=== PATIENT | female | born 1995 | race Hispanic/Latino ===

== ENCOUNTER 2020-10-05 05:36 | Emergency (ER) | payer BC ==
[2020-10-05 06:06] LABS: Urine Blood 2+ (Negative); Urine Glucose Negative (Negative); Urine Protein Negative (Negative); Urine Specific Gravity >=1.030 (1.005-1.030); Urine pH 5.5 (5.0-7.0)
[2020-10-05 06:12] LABS: Urine Specific Gravity/Preg >1.030 (1.005-1.030)
[2020-10-05] MEDS ORDERED: NA CHLORIDE 0.9% 1,000 ML ONE (06:15)
[2020-10-05] MEDS ORDERED: MORPHINE 4 MG/ML SYR ONE ×2 (06:15→10:19)
[2020-10-05] MEDS ORDERED: ONDANSETRON 4 MG/2 ML VIAL ONE ×2 (06:15→10:19)
[2020-10-05 06:19] LABS: Absolute Lymphocytes (CBC) 2.8 K/uL (0.7-4.9); Basophils % 0.6 % (0-1.3); Hematocrit 42.3 % (36.0-45.0); Lymphocytes % 41.4 % (15.3-44.8); MPV 7.9 fL (7.6-11.3); RBC Red Blood Cell Count 5.06 M/uL (3.86-4.86)
[2020-10-05 06:27] LABS: ALT/SGPT 27 U/L (12-78); AST/SGOT 20 U/L (15-37); Albumin 3.6 g/dL (3.4-5.0); Alkaline Phosphatase 154 U/L (45-117); BUN Blood Urea Nitrogen 17 mg/dL (7-18); Bicarbonate 29 mmol/L (21-32); Bilirubin Direct < 0.1 mg/dL (0-0.2); Bilirubin Total 0.2 mg/dL (0.2-1.0); Glucose Level 88 mg/dL (74-106); Lipase 219 U/L (73-393); Potassium 3.9 mmol/L (3.5-5.1); Protein, Total 7.9 g/dL (6.4-8.2); Sodium Level 141 mmol/L (136-145)
[2020-10-05] MEDS ORDERED: FAMOTIDINE 20 MG/2 ML VIAL IV ONE (06:37)
--- NOTE | 2020-10-05 07:28 | RAD REPORT ---
EXAM DESCRIPTION: CTAbdomen Pelvis W Contrast - 10/05/2020 7:10 am CLINICAL HISTORY: Abdominal pain. Abd pain;Nausea / vomiting COMPARISON: No comparisons TECHNIQUE: Biphasic CT imaging of the abdomen and pelvis was performed with 100 ml non-ionic IV cont rast. All CT scans are performed using dose optimization technique as appropriate and may include automated exposure control or mA/KV adjustment according to patient size. FINDINGS: The lung bases are clear. The liver, spleen, pancreas, adrenal glands and kidneys are within normal limits. No bowel obstruction, free air, free fluid or abscess. The appendix is normal. No evidence of signi ficant lymphadenopathy. No suspicious bony findings. Mildly enlarged uterus. IMPRESSION: No acute intra-abdominal or pelvic finding. uterus
--- NOTE | 2020-10-05 10:09 | RAD REPORT ---
EXAM DESCRIPTION: US - Abdomen Exam Limited - 10/05/2020 8:44 am CLINICAL HISTORY: ABD PAIN COMPARISON: No comparisons FINDINGS: The gallbladder demonstrates several small shadowing gallstones. No pericholecystic fluid or gallbladder wall thickening. The common bile duct is mildly enlarged measuring 7 mm. The liver demonstrates no findings of intrahepatic biliary dilatation. IMPRESSION: Cholelithiasis. No sonographic abnormality to indicate acute cholecystitis. Mildly prominent bile duct 6-7 mm. Follow-up MRCP may be of value.
--- NOTE | 2020-10-05 10:42 | ER ---
Nurse's Notes [facility] Name: Shahriar Sharif Age: 25 yrs Sex: Female : 1995 Arrival Date: 10/05/2020 Time: 05:38 Bed 13 Private MD: Diagnosis: Cholelithiasis;Choledocholithiasis Presentation: 10/05 05:46 Chief complaint: Patient states: Reports abdominal pain that started this AM pt reports ea it is epigastric pain and one episode of vomiting. Reports she ate pizza last night. Gave to a new born about two weeks ago. Coronavirus screen: At this time, the client does not indicate any symptoms associated with coronavirus-19. Ebola Screen: No symptoms or risks identified at this time. Initial Sepsis Screen: Does the patient meet any 2 criteria? No. Patient's initial sepsis screen is negative. Does the patient have a suspected source of infection? No. Patient's initial sepsis screen is negative. Risk Assessment: Do you want to hurt yourself or someone else? Patient reports no desire to harm self or others. Onset of symptoms was October 05, 2020. 05:46 Method Of Arrival: Ambulatory ea 05:46 Acuity: NIOCLE 3 ea Triage Assessment: 06:11 General: Appears uncomfortable, Behavior is appropriate for age. Pain: Complains of ea pain in epigastric area. Neuro: Level of Consciousness is awake, alert, obeys commands, Oriented to person, place, time. Respiratory: Airway is patent Respiratory effort is even, unlabored, Respiratory pattern is regular, symmetrical. GI: Abdomen is non-distended. Derm: Skin is pink, warm \T\ dry. Historical: - Allergies: 06:11 No Known Allergies; ea - Home Meds: 06:11 None [Active]; ea - PMHx: 06:11 None; ea - PSHx: 06:11 None; ea - Immunization history:: Adult Immunizations up to date. - Social history:: Smoking status: Patient denies any tobacco usage or history of. Screenin:10 Abuse screen: Denies threats or abuse. Nutritional screening: No deficits noted. ea Tuberculosis screening: No symptoms or risk factors identified. Fall Risk None identified. Assessment: 07:30 General: Appears in no apparent distress. comfortable, well groomed, Behavior is calm, ph cooperative, appropriate for age. Pain: Complains of pain in epigastric area and right upper quadrant Pain currently is 2 out of 10 on a pain scale. Neuro: Level of Consciousness is awake, alert, obeys commands, Oriented to person, place, time, situation. Respiratory: Airway is patent Respiratory effort is even, unlabored. GI: Reports nausea, vomiting, denies at this time. : No signs and/or symptoms were reported regarding the genitourinary system. Derm: Skin is intact, is healthy with good turgor, Skin is pink, warm \T\ dry. 08:59 Reassessment: Patient appears in no apparent distress at this time. Patient and/or ph family updated on plan of care and expected duration. Pain level reassessed. Patient is alert, oriented x 3, equal unlabored respirations, skin warm/dry/pink. 10:30 Reassessment: Patient appears in no apparent distress at this time. Patient and/or ph family updated on plan of care and expected duration. Pain level reassessed. Patient is alert, oriented x 3, equal unlabored respirations, skin warm/dry/pink. Awaiting US results. 12:15 Reassessment: Patient appears in no apparent distress at this time. Patient and/or ph family updated on plan of care and expected duration. Pain level reassessed. Patient is alert, oriented x 3, equal unlabored respirations, skin warm/dry/pink. Report called to Michael FRITZ at [facility] in [place], transfer form signed by pt. 12:57 Reassessment: Patient appears in no apparent distress at this time. Patient and/or ph family updated on plan of care and expected duration. Pain level reassessed. Patient is alert, oriented x 3, equal unlabored respirations, skin warm/dry/pink. Report given to [facility], pt transferred to [facility]. Vital Signs: 05:46 BP 111 / 52; Pulse 82; Resp 18; Temp 99; Pulse Ox 97% ; Weight 86.18 kg; Height 5 ft. 3 ea in. (160.02 cm); 07:30 BP 108 / 51; Pulse 78; Resp 16; Pulse Ox 100% on R/A; ph 08:57 BP 132 / 73; Pulse 72; Resp 18; Pulse Ox 98% on R/A; ph 10:30 BP 114 / 59; Pulse 73; Resp 16; Pulse Ox 98% on R/A; ph 11:30 BP 122 / 72; Pulse 73; Resp 18; Pulse Ox 99% on R/A; ph 12:30 BP 113 / 63; Pulse 72; Resp 18; Temp 98.7; Pulse Ox 99% on R/A; ph 05:46 Body Mass Index 33.66 (86.18 kg, 160.02 cm) ea ED Course: 05:38 Patient arrived in ED. bp1 05:46 Lexis Shaikh, CATRINA is Primary Nurse. ea 05:52 Diomedes Castellanos MD is Attending Physician. [facility] 06:10 Triage completed. ea 06:10 Patient has correct armband on for positive identification. Bed in low position. Call ea light in reach. Pulse ox on. NIBP on. 06:11 Arm band placed on right wrist. Patient placed in an exam room, on a stretcher, on ea pulse oximetry. 07:10 CT Abd/Pelvis - IV Contrast Only In Process Unspecified. EDMS 07:15 Attending Physician role handed off by Diomedes Castellanos MD rn 07:15 Joselito Solano MD is Attending Physician. rn 08:44 US Abdomen Limited In Process Unspecified. EDMS 10:43 initiated a transfer with Jorge Luis from the [facility] transfer center. eb 11:[address] Keys the GI customer retention specialist for [facility] with Dr. Solano for patient eb transfer consultation. 11:28 administrative approval given by Tania Murcia/ patient has been accepted to [facility] Rm 320/ Dr. Lesly Keys has accepted the patient in transfer/ report to be called to [phone]. 12:55 No provider procedures requiring assistance completed. Patient transferred, IV remains ph in place. Administered Medications: 06:06 Drug: NS 0.9% 1000 ml Route: IV; Rate: 1 bolus; Site: right antecubital; ea 07:30 Follow up: Response: No adverse reaction; IV Status: Completed infusion; IV Intake: ph 1000ml 06:06 Drug: morphine 4 mg Route: IVP; Site: right antecubital; ea 06:21 Follow up: Response: No adverse reaction ea 06:07 Drug: Zofran (Ondansetron) 4 mg Route: IVP; Site: right antecubital; ea 06:21 Follow up: Response: No adverse reaction ea 06:21 Not Given (Duplicate Order): NS 0.9% 1000 ml IV at 1000 ml once ea 06:21 Drug: Pepcid (famotidine) 20 mg Route: IVP; Site: right antecubital; ea 12:58 Follow up: Response: No adverse reaction ph 10:00 Drug: Zofran (Ondansetron) 4 mg Route: IVP; Site: right antecubital; ph 12:58 Follow up: Response: No adverse reaction; Nausea is decreased ph 10:02 Drug: morphine 4 mg Route: IVP; Site: right antecubital; ph 12:58 Follow up: Response: No adverse reaction; Pain is decreased; RASS: Alert and Calm (0) ph Intake: 07:30 IV: 1000ml; Total: 1000ml. ph Outcome: 10:42 ER care complete, transfer ordered by . rn 12:59 Patient left the ED. ph Signatures: Dispatcher [employer] EDMS Joselito Solano MD MD rn Hall, Patricia, RN RN ph Antunez, Elena, RN RN ea Botello, Elizabeth eb Paniauga, Brittany bp1 Holmes, Maurice, MD MD mh7
--- NOTE | 2020-10-05 10:42 | EDPHYS ---
Physician Documentation [facility] Name: Shahriar Sharif Age: 25 yrs Sex: Female : 1995 Arrival Date: 10/05/2020 Time: 05:38 Bed 13 Private MD: ED Physician Joselito Solano HPI: 10/05 06:09 This 25 yrs old Female presents to ER via Unassigned with complaints of mh7 Abdominal Pain, Vomiting. 06:09 The patient presents with abdominal pain in the upper abdomen. Onset: The mh7 symptoms/episode began/occurred today, at 04:00. The symptoms do not radiate. Associated signs and symptoms: Pertinent positives: nausea and vomiting, Pertinent negatives: anorexia, blood in stools, chest pain, constipation, diarrhea, dysuria, fever, headache, hematuria, palpitations, shortness of breath, vaginal discharge, vomiting blood. The symptoms are described as intermittent, vague, waxing/waning. Modifying factors: The symptoms are alleviated by nothing, the symptoms are aggravated by nothing. Severity of pain: At its worst the pain was moderate today, in the emergency department the pain is unchanged. Historical: - Allergies: 06:11 No Known Allergies; ea - Home Meds: 06:11 None [Active]; ea - PMHx: 06:11 None; ea - PSHx: 06:11 None; ea - Immunization history:: Adult Immunizations up to date. - Social history:: Smoking status: Patient denies any tobacco usage or history of. ROS: 06:09 Constitutional: Negative for fever, chills, and weight loss, Eyes: Negative for injury, mh7 pain, redness, and discharge, ENT: Negative for injury, pain, and discharge, Neck: Negative for injury, pain, and swelling, Cardiovascular: Negative for chest pain, palpitations, and edema, Respiratory: Negative for shortness of breath, cough, wheezing, and pleuritic chest pain, Back: Negative for injury and pain, : Negative for injury, bleeding, discharge, and swelling, MS/Extremity: Negative for injury and deformity, Skin: Negative for injury, rash, and discoloration, Neuro: Negative for headache, weakness, numbness, tingling, and seizure, Psych: Negative for depression, anxiety, suicide ideation, homicidal ideation, and hallucinations, Allergy/Immunology: Negative for hives, rash, and allergies, Endocrine: Negative for neck swelling, polydipsia, polyuria, polyphagia, and marked weight changes, Hematologic/Lymphatic: Negative for swollen nodes, abnormal bleeding, and unusual bruising. Exam: 06:09 Constitutional: This is a well developed, well nourished patient who is awake, alert, mh7 and in no acute distress. Head/Face: Normocephalic, atraumatic. Eyes: Pupils equal round and reactive to light, extra-ocular motions intact. Lids and lashes normal. Conjunctiva and sclera are non-icteric and not injected. Cornea within normal limits. Periorbital areas with no swelling, redness, or edema. Neck: Trachea midline, no thyromegaly or masses palpated, and no cervical lymphadenopathy. Supple, full range of motion without nuchal rigidity, or vertebral point tenderness. No Meningismus. Chest/axilla: Normal chest wall appearance and motion. Nontender with no deformity. No lesions are appreciated. Cardiovascular: Regular rate and rhythm with a normal S1 and S2. No gallops, murmurs, or rubs. Normal PMI, no JVD. No pulse deficits. Respiratory: Lungs have equal breath sounds bilaterally, clear to auscultation and percussion. No rales, rhonchi or wheezes noted. No increased work of breathing, no retractions or nasal flaring. 06:09 Back: No spinal tenderness. No costovertebral tenderness. Full range of motion. Skin: Warm, dry with normal turgor. Normal color with no rashes, no lesions, and no evidence of cellulitis. MS/ Extremity: Pulses equal, no cyanosis. Neurovascular intact. Full, normal range of motion. Neuro: Awake and alert, GCS 15, oriented to person, place, time, and situation. Cranial nerves II-XII grossly intact. Motor strength 5/5 in all extremities. Sensory grossly intact. Cerebellar exam normal. Normal gait. Psych: Awake, alert, with orientation to person, place and time. Behavior, mood, and affect are within normal limits. 06:09 Abdomen/GI: Inspection: obese Bowel sounds: normal, in all quadrants, Palpation: moderate abdominal tenderness, in the epigastric area and right upper quadrant, mass, is not appreciated, rebound tenderness, is not appreciated, voluntary guarding, is not appreciated, involuntary guarding, is not appreciated, no appreciated organomegaly, Rectal exam: the exam is deferred, because of patient request, Indicators: McBurney's point is not tender, Vidal's sign is negative, Rovsing's sign is negative, Obturator sign is negative, Psoas sign is negative, Liver: no appreciated palpable abnormalities, Hernia: not appreciated. Vital Signs: 05:46 BP 111 / 52; Pulse 82; Resp 18; Temp 99; Pulse Ox 97% ; Weight 86.18 kg; Height 5 ft. 3 ea in. (160.02 cm); 07:30 BP 108 / 51; Pulse 78; Resp 16; Pulse Ox 100% on R/A; ph 08:57 BP 132 / 73; Pulse 72; Resp 18; Pulse Ox 98% on R/A; ph 10:30 BP 114 / 59; Pulse 73; Resp 16; Pulse Ox 98% on R/A; ph 11:30 BP 122 / 72; Pulse 73; Resp 18; Pulse Ox 99% on R/A; ph 12:30 BP 113 / 63; Pulse 72; Resp 18; Temp 98.7; Pulse Ox 99% on R/A; ph 05:46 Body Mass Index 33.66 (86.18 kg, 160.02 cm) ea MDM: 06:57 Transition of care: After a detail discussion of the patient's case, care is mh7 transferred to Joselito Solano MD. 07:15 Patient medically screened. rn 10:40 Differential diagnosis: cholecystitis, Cholelithiasis, gastritis. Data reviewed: vital rn signs, nurses notes, lab test result(s), radiologic studies, CT scan, ultrasound, and as a result, I will admit patient. Counseling: I had a detailed discussion with the patient and/or guardian regarding: the historical points, exam findings, and any diagnostic results supporting the discharge/admit diagnosis, lab results, radiology results, the need to transfer to another facility, [facility] does not immediately have the required specialist. Response to treatment: the patient's symptoms have mildly improved after treatment, and as a result, I will admit patient. ED course: Pt still with pain requiring pain medication in IV, prominent CBD, elevated alk phos, 3 weeks , will transfer given no GI or MRCP available here.. 10/05 05:46 Order name: Basic Metabolic Panel; Complete Time: 06:29 ea 10/05 05:46 Order name: CBC with Diff; Complete Time: 06:25 ea 10/05 05:46 Order name: Hepatic Function; Complete Time: 06:29 ea 10/05 05:46 Order name: Lipase; Complete Time: 06:29 ea 10/05 06:06 Order name: Urine Dipstick-Ancillary; Complete Time: 06:07 EDMS 10/05 06:06 Order name: Urine --Ancillary (enter results); Complete Time: 06:25 mw2 10/05 06:36 Order name: CT Abd/Pelvis - IV Contrast Only; Complete Time: 07:34 mh7 10/05 06:57 Order name: Urine Culture [facility] 10/05 06:57 Order name: Urine Culture [facility] 10/05 07:35 Order name: US Abdomen Limited; Complete Time: 10:19 rn 10/05 11:58 Order name: SARS-COV-2 RT PCR [facility] 10/05 05:46 Order name: IV Saline Lock; Complete Time: 06:05 ea 10/05 05:46 Order name: Labs collected and sent; Complete Time: 06:05 ea 10/05 06:05 Order name: Urine Dipstick-Ancillary (obtain specimen); Complete Time: 06:22 7 Administered Medications: 06:06 Drug: NS 0.9% 1000 ml Route: IV; Rate: 1 bolus; Site: right antecubital; ea 07:30 Follow up: Response: No adverse reaction; IV Status: Completed infusion; IV Intake: ph 1000ml 06:06 Drug: morphine 4 mg Route: IVP; Site: right antecubital; ea 06:21 Follow up: Response: No adverse reaction ea 06:07 Drug: Zofran (Ondansetron) 4 mg Route: IVP; Site: right antecubital; ea 06:21 Follow up: Response: No adverse reaction ea 06:21 Not Given (Duplicate Order): NS 0.9% 1000 ml IV at 1000 ml once ea 06:21 Drug: Pepcid (famotidine) 20 mg Route: IVP; Site: right antecubital; ea 12:58 Follow up: Response: No adverse reaction ph 10:00 Drug: Zofran (Ondansetron) 4 mg Route: IVP; Site: right antecubital; ph 12:58 Follow up: Response: No adverse reaction; Nausea is decreased ph 10:02 Drug: morphine 4 mg Route: IVP; Site: right antecubital; ph 12:58 Follow up: Response: No adverse reaction; Pain is decreased; RASS: Alert and Calm (0) ph Disposition: 10/05/20 10:42 Transfer ordered to [facility]. Diagnosis are Cholelithiasis, Choledocholithiasis. - Reason for transfer: Higher level of care. - Accepting physician is . - Condition is Stable. - Problem is new. - Symptoms are unchanged. Signatures: Dispatcher [employer] EDMN Joselito Solano MD MD rn Hall, Patricia, RN RN ph Antunez, Elena, RN RN ea Holmes, Maurice, MD MD mh7 Corrections: (The following items were deleted from the chart) 11:06 10:43 CORONAVIRUS+MR.LAB.BRZ ordered. [facility] 12:59 10:42 10/05/2020 10:42 Transfer ordered to [facility]. Diagnosis is Cholelithiasis; ph Choledocholithiasis. Reason for transfer: Higher level of care. Accepting physician is . Condition is Stable. Problem is new. Symptoms are unchanged. rn
[2020-10-05 13:10] VITALS: O2SAT 99
[2020-10-05 13:11] VITALS: BP 113/63; TEMP 98.7
== END 2020-10-05 12:59 | disposition short-term general hospital (02) ==
LOC: ER 05:36
DX: K80.50 Calculus of bile duct without cholangitis or cholecystitis without obstruction (principal); K80.20 Calculus of gallbladder without cholecystitis without obstruction; Z20.822 Contact with and (suspected) exposure to COVID-19
CPT/HCPCS: 87088; 85025; 87086; 80048; 36415; 81025; 80076; 81003; 83690; 74177; 76705; U0003; Q9967; J7030; J2405 ×2; 96361; 96374; 96375; 99284

== ENCOUNTER 2020-10-14 16:36 | Emergency (ER) | payer BC ==
--- OUTSIDE RECORDS SUMMARY | 2020-10-14 16:39 | XMS REPORT | Continuity of Care Document ---
:1995 [address] [facility] t Address [address] [place] [address] Care Team Providers Name Role Phone Pcp, Does Not Have A Primary Care Physician Reyes MARINELLI Attending Clinician Art KYLE Attending Clinician Loida MARINELLI M Attending Clinician Reyes MARINELLI Admitting Clinician Payers Payer Name Policy Type Policy Effective Date Expiration Date Sour ce Number [facility] [id number] [facility] [place] [facility] [place] [id number] Branch 2020-[place] [id number], [place] [address]LYU/POS Problems Condition Condition Condition Status Onset Resolution Last Treating Co mments Source Name Details Category Date Date Treatment Clinician Date Encounter Encounter Disease Active Uni vers for for 3-16 [place] Medical normal normal Branch first first in third in third trimester trimester Class 1 Class 1 Disease Active 2019-04 Univers obesity obesity 2-02 ity of without without 00:00: [place] serious serious 00 Medical comorbidit comorbidit Br anch y with y with body mass body mass index index (BMI) of (BMI) of 34.0 to 34.0 to 34.9 in 34.9 in adult, adult, unspecifie unspecifie d obesity d obesity type type LGSIL on LGSIL on Disease Active 2019-04 Unive rs Pap smear Pap smear 2-02 [place] [facility] Unspecifie Unspecifie Disease Resolve 2019-042020-08-22 2020-08-22 Univers d d d 05-27 00:00:00 16:55:22 [place] high[place] [facility] Allergies, Adverse Reactions, Alerts This patient has no known allergies or adverse reactions. Social History Social Habit Start Date Stop Date Quantity Comments Source ASSERTION 2019-12-29 [facility] 00:00:00 [facility] Tobacco use and 2020-08-28 2020-08-28 Never used [facility] y of exposure 00:00:00 00:00:00 [facility] Alcohol intake 2020-08-28 2020-08-28 Ex-drinker [facility] 00:00:00 00:00:00 (finding) [facility] Sex Assigned At [birth year] [facility] y of 00:00:00 00:00:00 [facility] Smoking Status Start Date Stop Date Source Never smoker [facility] Medications Ordered Filled Start Stop Current Ordering Indication Dosage Frequency Signature Comments Components Source Medication Medication Date Date Medication? Clinician (SIG) Name Name PNV Yes Take by [facility] no.95/beryl 1-05 mouth. ity of [place] 19:39: [place] fum/folic 04 [facility] ( ORAL) Immunizations Ordered Filled Immunization Date Status Comments Sourc e Immunization Name Name TDAP 2020-07-08 Completed [facility] 00:00:00 [facility] Vital Signs Vital Name Observation Time Observation Value Comments Source Respiratory rate 2020-08-28 13:09:00 18 /min [facility] Body weight 2020-08-28 13:09:00 98.113 kg [facility] BMI 2020-08-28 13:09:00 37.13 kg/m2 [facility] Oxygen saturation in 2020-08-28 13:09:00 98 /min [facility] Arterial blood by [facility] Pulse oximetry Branch Systolic blood 2020-08-28 13:09:00 117 mm[Hg] Univer sity of pressure [facility] Diastolic blood 2020-08-28 13:09:00 73 mm[Hg] Unive [facility] Branch Heart rate 2020-08-28 13:09:00 83 /min Universi [facility] Body temperature 2020-08-28 13:09:00 36.72 [facility] Procedures This patient has no known procedures. Plan of Care Planned Activity Planned Date Details Comments Source Future Scheduled 2030-07-08 DTaP,Tdap,and Td Univers ity [facility] Test 00:00:00 Vaccines (2 - Td) Medical Br anch [code = DTaP,Tdap,and Td Vaccines (2 - Td)] Future Scheduled 2023-01-28 Screening for [facility] Test 00:00:00 malignant neoplasm of Medica l Branch cervix (procedure) [code = 741946537] Future Scheduled 2021-08-21 Screening for [facility] Test 00:00:00 Chlamydia trachomatis Medica l Branch (procedure) [code = 705601072] Future Scheduled 2021-03-26 [facility] (procedure) [code = Medical Branch [id number]] Future Scheduled 2020-12-24 [facility] (Season Ended) [code = Medic al Branch INFLUENZA VACCINE (Season Ended)] Future Scheduled 2015 [facility]00 (procedure) [code = Medical Branch [id number]] Future Scheduled 2013 SARS-CoV-2 (COVID-19) [facility]00 Vaccine (1) [code = Medical Branch SARS-CoV-2 (COVID-19) Vaccine (1)] Future Scheduled 2008 HPV VACCINES (1 - Univer sity [facility] Test 00:00:00 2-dose series) [code = Medic al Branch HPV VACCINES (1 - 2-dose series)] Future Scheduled 2007 MENINGOCOCCAL B Universi [facility] Test 00:00:00 VACCINES (1 of 2 - Medical B ranch Risk Bexsero 2-dose series) [code = MENINGOCOCCAL B VACCINES (1 of 2 - Risk Bexsero 2-dose series)] Future Scheduled 1998 VARICELLA VACCINES ([facility]:00 of 2 - 2-dose Medical Branch childhood series) [code = VARICELLA VACCINES (1 of 2 - 2-dose childhood series)] Encounters Start End Encounter Admission Attending Care Care Encounter Source Date/Time Date/Time Type Type Clinicians Facility Department ID 2020-09-15 2020-09-17 [facility] Susan Chambers [facility] [id number] 11:01:00 20:10:00 Encounter Rachel [id number] [place] [id number] [place] [id number] 2020-09-16 2020-09-[id number] 20:02:51 20:02:51 Event Aron Ramos [id number] [place] [id number] [place] [id number] 2020-09-16 2020-09-16 Anesthesia Loida [facility] [id number] 04:30:00 19:25:00 Event Andres Ramos [id number] [place] [id number] [place] [id number] Results This patient has no known results.
[2020-10-14 17:09] LABS: Absolute Lymphocytes (CBC) 2.3 K/uL (0.7-4.9); Basophils % 0.9 % (0-1.3); Hematocrit 38.4 % (36.0-45.0); Lymphocytes % 34.2 % (15.3-44.8); MPV 8.4 fL (7.6-11.3); RBC Red Blood Cell Count 4.68 M/uL (3.86-4.86)
[2020-10-14] MEDS ORDERED: MAGNES/ALUMIN/SIMET 30ML UCUP ONE (17:44)
[2020-10-14] MEDS ORDERED: FAMOTIDINE 20 MG/2 ML VIAL IV ONE (17:45)
[2020-10-14] MEDS ORDERED: MEPERIDINE HCL 25 MG/ML SYR ONE (17:45)
[2020-10-14] MEDS ORDERED: LIDOCAINE VISCOUS 2% SOLN 15 ML UDC ONE (17:45)
[2020-10-14] MEDS ORDERED: ONDANSETRON 4 MG/2 ML VIAL ONE (17:45)
[2020-10-14] MEDS ORDERED: NA CHLORIDE 0.9% 1,000 ML ONE (17:48)
[2020-10-14 17:51] LABS: ALT/SGPT 45 U/L (12-78); AST/SGOT 55 U/L (15-37); Albumin 3.7 g/dL (3.4-5.0); Alkaline Phosphatase 146 U/L (45-117); BUN Blood Urea Nitrogen 10 mg/dL (7-18); Bicarbonate 28 mmol/L (21-32); Bilirubin Direct < 0.1 mg/dL (0-0.2); Bilirubin Total 0.3 mg/dL (0.2-1.0); Glucose Level 84 mg/dL (74-106); Lipase 193 U/L (73-393); Potassium 3.7 mmol/L (3.5-5.1); Protein, Total 7.3 g/dL (6.4-8.2); Sodium Level 141 mmol/L (136-145)
--- NOTE | 2020-10-14 18:15 | RAD REPORT ---
EXAM DESCRIPTION: US - Abdomen Exam Limited - 10/14/2020 5:58 pm CLINICAL HISTORY: ABD PAIN COMPARISON: Abdomen Exam Limited dated 10/05/2020bdomen Exam Limited dated 10/05/2020 FINDINGS: Several small less than 5 mm sized gallstones are seen layering in the dependent portion o f the gallbladder wall. There is no wall thickening or pericholecystic fluid. No measurable quantity of sludge. No gallstones are seen fixed in the neck of the gallbladder. Common bile duct within normal range at 6-7 mm. No duct stone seen. The duct in the head of the pancr eas region is not well visualized due to bowel. No intrahepatic duct dilatation identified. IMPRESSION: Patient has several small less than 5 mm sized gallstones with no wall thickening or per icholecystic fluid. No common duct stone identifiable and no duct dilatation.
--- NOTE | 2020-10-14 18:54 | EDPHYS ---
Physician Documentation [facility] Name: Shahriar Sharif Age: 25 yrs Sex: Female : 1995 Arrival Date: 10/14/2020 Time: 16:39 Bed 14 Private MD: ED Physician Ryan Deleon HPI: 10/14 17:18 This 25 yrs old Female presents to ER via Ambulatory with complaints of kdr Gallbladder Issue. 17:18 The patient presents with abdominal pain in the epigastric area, in the right upper kdr quadrant. Onset: The symptoms/episode began/occurred suddenly, 0.5 hour(s) ago. The symptoms do not radiate. Associated signs and symptoms: Pertinent positives: nausea, vomiting, and diarrhea, Pertinent negatives: chest pain, constipation, dysuria, fever, headache, palpitations, shortness of breath, vaginal discharge, vomiting, vomiting blood. The symptoms are described as achy, burning, constant, steady. Modifying factors: The symptoms are alleviated by nothing, the symptoms are aggravated by food. Severity of pain: At its worst the pain was moderate just prior to arrival, in the emergency department the pain is unchanged. The patient has experienced similar episodes in the past, multiple times. The patient has been recently seen by a physician: The patient has been recently seen at the [facility] Emergency Department, a couple of weeks ago. 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 Flu vaccine is not up to date. - Social history:: Smoking status: Patient denies any tobacco usage or history of. Patient/guardian denies using alcohol. ROS: 17:18 Constitutional: Negative for fever, chills, and weight loss, Eyes: Negative for injury, kdr pain, redness, and discharge, Neck: Negative for injury, pain, and swelling, Cardiovascular: Negative for chest pain, palpitations, and edema, Respiratory: Negative for shortness of breath, cough, wheezing, and pleuritic chest pain, Back: Negative for injury and pain, : Negative for injury, bleeding, discharge, and swelling, MS/Extremity: Negative for injury and deformity, Skin: Negative for injury, rash, and discoloration, Neuro: Negative for headache, weakness, numbness, tingling, and seizure activity. Psych: Negative for depression, anxiety, suicide ideation, homicidal ideation, and hallucinations, Allergy/Immunology: Negative for hives, rash, and allergies, Endocrine: Negative for neck swelling, polydipsia, polyuria, polyphagia, and marked weight changes, Hematologic/Lymphatic: Negative for swollen nodes, abnormal bleeding, and unusual bruising. 17:18 Abdomen/GI: Positive for abdominal pain, nausea, vomiting, and diarrhea, Negative for constipation, black/tarry stool, rectal pain, rectal bleeding, bowel incontinence. Exam: 17:18 Constitutional: This is a well developed, well nourished patient who is awake, alert, kdr and in no acute distress. Head/Face: Normocephalic, atraumatic. Eyes: Pupils equal round and reactive to light, extra-ocular motions intact. Lids and lashes normal. Conjunctiva and sclera are non-icteric and not injected. Cornea within normal limits. Periorbital areas with no swelling, redness, or edema. Neck: Trachea midline, no thyromegaly or masses palpated, and no cervical lymphadenopathy. Supple, full range of motion without nuchal rigidity, or vertebral point tenderness. No Meningismus. Chest/axilla: Normal chest wall appearance and motion. Nontender with no deformity. No lesions are appreciated. Cardiovascular: Regular rate and rhythm with a normal S1 and S2. No gallops, murmurs, or rubs. Normal PMI, no JVD. No pulse deficits. Respiratory: Lungs have equal breath sounds bilaterally, clear to auscultation and percussion. No rales, rhonchi or wheezes noted. No increased work of breathing, no retractions or nasal flaring. Back: No spinal tenderness. No costovertebral tenderness. Full range of motion. Skin: Warm, dry with normal turgor. Normal color with no rashes, no lesions, and no evidence of cellulitis. MS/ Extremity: Pulses equal, no cyanosis. Neurovascular intact. Full, normal range of motion. Neuro: Awake and alert, GCS 15, oriented to person, place, time, and situation. Cranial nerves II-XII grossly intact. Motor strength 5/5 in all extremities. Sensory grossly intact. Cerebellar exam normal. Normal gait. Psych: Awake, alert, with orientation to person, place and time. Behavior, mood, and affect are within normal limits. 17:18 Abdomen/GI: Inspection: abdomen appears normal, obese Bowel sounds: active, all quadrants, Palpation: soft, mild abdominal tenderness, in the epigastric area and right upper quadrant. Vital Signs: 16:43 BP 121 / 62; Pulse 100; Resp 18 S; Temp 97.9(TE); Pulse Ox 100% on R/A; Weight 84.82 kg ca1 (R); Height 5 ft. 4 in. (162.56 cm) (R); Pain 9/10; 17:40 BP 117 / 70; Pulse 85; Resp 18; Pulse Ox 97% on R/A; ph 19:14 BP 122 / 72; Pulse 78; Resp 16; Pulse Ox 100% on R/A; jm8 16:43 Body Mass Index 32.10 (84.82 kg, 162.56 cm) ca1 MDM: 18:53 Patient medically screened. kdr 18:58 Data reviewed: vital signs, nurses notes, lab test result(s), radiologic studies. kdr Counseling: I had a detailed discussion with the patient and/or guardian regarding: the historical points, exam findings, and any diagnostic results supporting the discharge/admit diagnosis, lab results, radiology results, the need for outpatient follow up. Physician consultation: Live Da Silva MD and will see patient in ED, immediately. 10/14 16:52 Order name: Basic Metabolic Panel [facility] 10/14 16:52 Order name: CBC with Diff [facility] 10/14 16:52 Order name: Hepatic Function [facility] 10/14 16:52 Order name: Lipase [facility] 10/14 17:09 Order name: CBC with Automated Diff; Complete Time: 17:16 EDMS 10/14 17:51 Order name: Basic Metabolic Panel; Complete Time: 18:13 EDMS 10/14 17:15 Order name: US Abdomen Limited [facility] 10/14 17:51 Order name: Liver (Hepatic) Function; Complete Time: 18:13 EDMS 10/14 17:51 Order name: Lipase; Complete Time: 18:13 EDOH 10/14 18:16 Order name: US; Complete Time: 18:42 EDMS 10/14 16:52 Order name: IV Saline Lock; Complete Time: 17:13 kdr 10/14 16:52 Order name: Labs collected and sent; Complete Time: 17:13 kdr Administered Medications: 17:34 Drug: NS 0.9% 1000 ml Route: IV; Rate: 1 bolus; Site: right antecubital; ph 19:12 Follow up: IV Status: Completed infusion 8 17:34 Drug: Pepcid (famotidine) 20 mg Route: IVP; Site: right antecubital; ph 19:11 Follow up: Response: No adverse reaction jm8 17:36 Drug: Zofran (Ondansetron) 4 mg Route: IVP; Site: right antecubital; ph 19:11 Follow up: Response: No adverse reaction [facility] 17:38 Drug: Demerol (meperidine) 25 mg Route: IVP; Site: right antecubital; ph 19:11 Follow up: Response: No adverse reaction [facility] 19:11 Drug: GI Cocktail without - (Maalox Suspension 30 ml, Lidocaine Liquid 2 % 15 jm8 ml) Route: PO; 19:11 Follow up: Response: No adverse reaction; Medication administered at discharge. jm8 Disposition: 10/14/20 18:53 Discharged to Home. Impression: Abdominal and pelvic pain, Calculus of gallbladder without cholecystitis without obstruction. - Condition is Stable. - Discharge Instructions: Cholelithiasis, [id number], Abdominal Pain, Adult, [id number]. - Prescriptions for Bentyl 20 mg Oral Tablet - take 1 tablet by ORAL route every 6 hours As needed; 20 tablet. Pepcid 20 mg Oral Tablet - take 1 tablet by ORAL route every 12 hours for 5 days; 10 tablet. Zofran 4 mg Oral Tablet - take 1 tablet by ORAL route every 12 hours As needed; 12 tablet. Tramadol 50 mg Oral Tablet - take 1 tablet by ORAL route every 8 hours as needed; 12 tablet. - Medication Reconciliation Form, Thank You Letter, Prescription Opioid Use form. - Follow up: Private Physician; When: 2 - 3 days; Reason: If symptoms return, Further diagnostic work-up, Recheck today's complaints, Continuance of care, Re-evaluation by your physician. Follow up: Live Da Silva MD; When: 2 - 3 days; Reason: If symptoms return, Further diagnostic work-up, Recheck today's complaints, Continuance of care, Re-evaluation by your physician. - Problem is an acute exacerbation. - Symptoms have improved. Signatures: Dispatcher [employer] EDMS Ryan Deleon MD MD [facility] Patricia Flanagan, RN RN Liza Coombs, RN RN [facility] Xander Seymour, RN RN jm8 Corrections: (The following items were deleted from the chart) 19:15 18:53 10/14/2020 18:53 Discharged to Home. Impression: Abdominal and pelvic pain; jm8 Calculus of gallbladder without cholecystitis without obstruction. Condition is Stable. Forms are Medication Reconciliation Form, Thank You Letter, Antibiotic Education, Prescription Opioid Use. Follow up: Private Physician; When: 2 - 3 days; Reason: If symptoms return, Further diagnostic work-up, Recheck today's complaints, Continuance of care, Re-evaluation by your physician. Follow up: Live Da Silva; When: 2 - 3 days; Reason: If symptoms return, Further diagnostic work-up, Recheck today's complaints, Continuance of care, Re-evaluation by your physician. Problem is an acute exacerbation. Symptoms have improved. kdr
--- NOTE | 2020-10-14 18:54 | ER ---
Nurse's Notes [facility] Name: Shahriar Sharif Age: 25 yrs Sex: Female : 1995 Arrival Date: 10/14/2020 Time: 16:39 Bed 14 Private MD: Diagnosis: Abdominal and pelvic pain;Calculus of gallbladder without cholecystitis without obstruction Presentation: 10/14 16:43 Chief complaint: Patient states: was here last weekend and they said I have gallstones. ca1 I haven't been to my doctor yet. 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 Coronavirus screen: Client denies travel out of the [place] in the last 14 days. diarrhea, nausea, vomiting. Client presents with at least one sign or symptom that may indicate coronavirus-19. Standard/surgical mask placed on the client. Provider contacted for isolation considerations. Ebola Screen: Patient negative for fever greater than or equal to 101.5 degrees Fahrenheit, and additional compatible Ebola Virus Disease symptoms Patient denies exposure to infectious person. Patient denies travel to an Ebola-affected area in the 21 days before illness onset. No symptoms or risks identified at this time. Initial Sepsis Screen: Does the patient meet any 2 criteria? No. Patient's initial sepsis screen is negative. Does the patient have a suspected source of infection? No. Patient's initial sepsis screen is negative. Risk Assessment: Do you want to hurt yourself or someone else? Patient reports no desire to harm self or others. Onset of symptoms was October 14, 2020. 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 Flu vaccine is not up to date. - Social history:: Smoking status: Patient denies any tobacco usage or history of. Patient/guardian denies using alcohol. Screenin:38 Abuse screen: Denies threats or abuse. Denies injuries from another. Nutritional ph screening: No deficits noted. Tuberculosis screening: No symptoms or risk factors identified. Fall Risk None identified. Assessment: 17:39 General: Appears in no apparent distress. uncomfortable, well groomed, Behavior is ph calm, cooperative, appropriate for age, Denies fever. Pain: Complains of pain in epigastric area Pain radiates to right upper quadrant. Neuro: Level of Consciousness is awake, alert, obeys commands, Oriented to person, place, time, situation. Cardiovascular: Capillary refill < 3 seconds in bilateral fingers Patient's skin is warm and dry. Respiratory: Airway is patent Respiratory effort is even, unlabored, Respiratory pattern is regular, symmetrical. GI: Abdomen is non-distended, Reports upper abdominal pain, diarrhea, epigastric pain, nausea, vomiting. Derm: Skin is intact, is healthy with good turgor, Skin is pink, warm \T\ dry. Musculoskeletal: Circulation, motion, and sensation intact. Range of motion: intact in all extremities. 18:45 Reassessment: Patient appears in no apparent distress at this time. Patient and/or ph family updated on plan of care and expected duration. Pain level reassessed. Patient is alert, oriented x 3, equal unlabored respirations, skin warm/dry/pink. Vital Signs: 16:43 BP 121 / 62; Pulse 100; Resp 18 S; Temp 97.9(TE); Pulse Ox 100% on R/A; Weight 84.82 kg ca1 (R); Height 5 ft. 4 in. (162.56 cm) (R); Pain 9/10; 17:40 BP 117 / 70; Pulse 85; Resp 18; Pulse Ox 97% on R/A; ph 19:14 BP 122 / 72; Pulse 78; Resp 16; Pulse Ox 100% on R/A; jm8 16:43 Body Mass Index 32.10 (84.82 kg, 162.56 cm) ca1 ED Course: 16:39 Patient arrived in ED. ds1 16:45 Triage completed. ca1 16:45 Arm band placed on right wrist. ca1 16:50 Ryan Deleon MD is Attending Physician. kdr 16:50 Patricia Flanagan RN is Primary Nurse. ph 17:39 Patient has correct armband on for positive identification. Bed in low position. Call ph light in reach. Side rails up X 1. Pulse ox on. NIBP on. Door closed. Noise minimized. Warm blanket given. 18:52 Live Da Silva MD is Referral Physician. kdr 19:12 No provider procedures requiring assistance completed. Patient did not have IV access jm8 during this emergency room visit. Administered Medications: 17:34 Drug: NS 0.9% 1000 ml Route: IV; Rate: 1 bolus; Site: right antecubital; ph 19:12 Follow up: IV Status: Completed infusion jm8 17:34 Drug: Pepcid (famotidine) 20 mg Route: IVP; Site: right antecubital; ph 19:11 Follow up: Response: No adverse reaction jm8 17:36 Drug: Zofran (Ondansetron) 4 mg Route: IVP; Site: right antecubital; ph 19:11 Follow up: Response: No adverse reaction jm8 17:38 Drug: Demerol (meperidine) 25 mg Route: IVP; Site: right antecubital; ph 19:11 Follow up: Response: No adverse reaction 8 19:11 Drug: GI Cocktail without - (Maalox Suspension 30 ml, Lidocaine Liquid 2 % 15 jm8 ml) Route: PO; 19:11 Follow up: Response: No adverse reaction; Medication administered at discharge. jm8 Outcome: 18:53 Discharge ordered by . kdr 19:13 Discharged to home ambulatory. jm8 19:13 Condition: good 19:13 Discharge instructions given to patient, family, Instructed on discharge instructions, follow up and referral plans. medication usage, Demonstrated understanding of instructions, follow-up care, medications. 19:15 Patient left the ED. jm8 Signatures: Ryan Deleon MD MD kdr Sophie Villareal ds1 Patricia Flanagan RN RN Liza Coombs RN RN [facility] Xander Seymour RN RN jm8 Corrections: (The following items were deleted from the chart) 17:37 17:37 NS 0.9% 1000 ml IV at 1 bolus in right antecubital ph ph
[2020-10-14 19:36] VITALS: TEMP 97.9
[2020-10-14 19:47] VITALS: BP 122/72; O2SAT 100
== END 2020-10-14 19:15 | disposition home or self-care (01) ==
LOC: ER 16:36
DX: K80.20 Calculus of gallbladder without cholecystitis without obstruction (principal)
CPT/HCPCS: 85025; 80048; 36415; 80076; 83690; 76705; J2175; J7030; J2405; 96361; 96374; 96375; 99283

== ENCOUNTER 2020-11-12 08:51 | Day surgery (SDC) | payer BC ==
[2020-11-11 11:12] LABS: Specific Gravity 1.015 (1.005-1.030)
[2020-11-11 11:23] LABS: Absolute Lymphocytes (CBC) 1.8 K/uL (0.7-4.9); Basophils % 0.3 % (0-1.3); Hematocrit 36.8 % (36.0-45.0); Lymphocytes % 24.1 % (15.3-44.8); MPV 7.1 fL (7.6-11.3); RBC Red Blood Cell Count 4.54 M/uL (3.86-4.86)
[2020-11-11 11:36] LABS: ALT/SGPT 37 U/L (12-78); AST/SGOT 19 U/L (15-37); Albumin 3.8 g/dL (3.4-5.0); Alkaline Phosphatase 154 U/L (45-117); BUN Blood Urea Nitrogen 12 mg/dL (7-18); Bicarbonate 29 mmol/L (21-32); Bilirubin Total 0.2 mg/dL (0.2-1.0); Glucose Level 73 mg/dL (74-106); Protein, Total 7.6 g/dL (6.4-8.2); Sodium Level 140 mmol/L (136-145)
[2020-11-12] MEDS ORDERED: Ringers Lactate 1,000 ML IV ONE ×2 (09:28→12:42)
[2020-11-12] MEDS ORDERED: ACETAMINOPHEN 500 MG TAB ONE (09:48)
[2020-11-12] MEDS ORDERED: CELECOXIB 100 MG CAPSULE ONE (09:48)
[2020-11-12] MEDS ORDERED: CEFOXITIN/SWI 1gm 2 GM/20 ML SYR ONE (09:49)
[2020-11-12] MEDS ORDERED: BUPIVACAINE 0.25% PF 30 ML VIAL ONE (11:35)
[2020-11-12] MEDS ORDERED: LIDOCAINE 1% MPF 5 ML VIAL ONE (12:02)
[2020-11-12] MEDS ORDERED: MIDAZOLAM HCL 2 MG/2 ML INJ ONE (12:02)
[2020-11-12] MEDS ORDERED: ROCURONIUM 50 MG/5 ML VIAL IV ONE (12:02)
[2020-11-12] MEDS ORDERED: propofoL 200 MG/20 ML VIAL IV ONE (12:02)
[2020-11-12] MEDS ORDERED: FENTANYL CITR 100 MCG/2 ML ONE ×2 (12:02→12:38)
[2020-11-12] MEDS ORDERED: KETOROLAC 30 MG/ML INJ ONE (12:36)
[2020-11-12] MEDS ORDERED: dexAMETHasone 10 MG/ML VIAL ONE (12:36)
[2020-11-12] MEDS ORDERED: ONDANSETRON 4 MG/2 ML VIAL ONE ×2 (12:44→15:03)
--- NOTE | 2020-11-12 12:52 | P.OP ---
Preoperative diagnosis: Cholecystitis with Cholelithiasis Postoperative diagnosis: Cholecystitis with Cholelithiasis Primary procedure: Laparoscopic Cholecystectomy Secondary procedure: Intraoperative ICG cholangiography Anesthesia: GETA + Local Estimated blood loss: <5cc Specimen: Gallbladder Findings: distended gallbladder Complications: None Transferred to: Recovery Room Condition: Good
[2020-11-12] MEDS ORDERED: GLYCOPYRROLATE 0.2 MG/ML SYR ONE ×2 (13:08→13:17)
[2020-11-12] MEDS ORDERED: NEOSTIGMINE 1 MG/ML -5 ML ONE (13:13)
[2020-11-12] MEDS: FENTANYL CITR 100 MCG/2 ML ONE ×2 (13:36→13:47)
[2020-11-12 14:21] VITALS: BP 126/57; TEMP 97.4; O2SAT 98
[2020-11-12] MEDS ORDERED: HYDROCODONE/APAP 5/325 MG TAB ONE (14:55)
[2020-11-12] MEDS ORDERED: METOCLOPRAMIDE 10 MG/2mL INJ ONE (15:39)
[2020-11-12] MEDS ORDERED: PROMETHAZINE INJ 25 MG/ML AMP ONE (15:40)
--- NOTE | 2020-11-12 16:42 | OP ---
Date of Procedure: 11/12/2020 Surgeon: Live Da Silva MD, Preoperative Diagnosis: Cholecystitis with cholelithiasis. Postoperative Diagnosis: Cholecystitis with cholelithiasis. Procedures Performed: Laparoscopic cholecystectomy. Secondary procedure: Intraoperative ICG cholangiography. Anesthesia: General endotracheal plus local with 0.25% Marcaine. Estimated Blood Loss: Less than 5 mL. Specimen: Gallbladder. Findings: Descending gallbladder. Complications: None. Disposition: The patient was transferred to recovery room in good condition. Procedure In Detail: After informed was obtained, the patient was brought to the operating room, pre pped and draped in the usual sterile fashion. After adequate anesthesia achieved, a supraumbilical a stephany was anesthetized with 0.25% Marcaine, sharply incised. A 5 mm optical trocar was introduced in t he abdomen without evidence of complication. Insufflation obtained to 15 mmHg at this time. There w as no injury to vital structures upon entry in the abdomen. Inspection at this time noted a distende d gallbladder with a blue dome appearance floppy and distended. Grasping the patient's gallbladder w as difficult throughout the entire procedure. Additional trocar was placed in the epigastrium. This was similar anesthetized, sharply incised. A 5 mm trocar was placed under direct visualization with out evidence of complication. The umbilical trocar was then up-sized to a 12 mm under direct visuali zation without complication. Additional trocar was placed in the right upper quadrant. This was sim ilarly anesthetized and sharply incised. A 5 mm trocar was placed under direct vision without eviden ce of complication. The patient was positioned head up, right-sided position. Ratcheted grasper was used to grasp the patient's gallbladder placed towards the patient's right shoulder. Dissection con tinued down the Aixa pouch of the gallbladder using a combination of blunt dissection with Evelin nd retractor as well as electrocautery. ICG cholangiography assisted after the cystic duct and cysti c artery both encircled. The critical view of safety was obtained at this point. ICG cholangiograph y confirmed the common duct, cystic duct junction and that the anatomy was as anticipated. I then pl aced double titanium clips on the proximal side and singly on the distal side of both the cystic duct and cystic artery. Endo rolando were brought in and used to ligate the above 2 structures without ev idence of complication. There was no leakage at the end of the procedure. The patient's gallbladder was then removed off the hepatic fossa without evidence of complication using electrocautery, placed in EndoCatch bag, removed the umbilical trocar and sent off for pathologic examination. The abdomen was then re-insufflated at this point with 50 mmHg. The perihepatic space was irrigated copiously a nd suctioned out completely dry. Clips were found to be in good anatomic position. No hemostatic me asures were required and there was no spillage of bile throughout the entire procedure. The patient was positioned back in neutral position. The remaining effluent was suctioned out. The suction irri gator was used to suck out the remainder of the fluid and at this point, the umbilical trocar was rem otis. The umbilical trocar site was closed using a Vinnie-Yonatan Suture Passer with a 0 Vicryl in running fashion with good approximation of tissues. The abdomen was completely desufflated under dir ect visualization without evidence of complication. The trocar sites were then all copiously irrigat ed. After the abdomen was completely desufflated and suction out completely dry, all skin incisions copiously irrigated and closed with 4-0 Monocryl in a running fashion. Dermabond was placed over top . The patient tolerated the procedure well without evidence of complication and transferred to PACU in good condition. All counts were correct at the end of the case. CHARISSE/LORENZA Voice ID: [id number] Report ID: [id number]
== END 2020-11-12 15:45 | disposition home or self-care (01) ==
LOC: OR 08:51
PROVIDERS: ATTEND Surgery
PROC: BF00YZZ Plain Radiography of Bile Ducts using Other Contrast (ICD-10-PCS; 2020-11-12)
PROC: 0FT44ZZ Resection of Gallbladder, Percutaneous Endoscopic Approach (ICD-10-PCS; principal; 2020-11-12 10:15)
DX: K80.10 Calculus of gallbladder with chronic cholecystitis without obstruction (principal); Z20.822 Contact with and (suspected) exposure to COVID-19
CPT/HCPCS: 85025; 36415; 81025; 88304; 80053; 47563; U0003; J2704; J2765; J2550; J2250; J3010 ×3; J1100; J2710; J7120 ×2; J2405 ×2

== ENCOUNTER 2020-11-12 23:58 | Emergency (ER) | payer BC ==
--- OUTSIDE RECORDS SUMMARY | 2020-11-13 00:01 | XMS REPORT | Continuity of Care Document ---
:1995 Author Organization [facility] t Address [address] [place] [address] Care Team Providers Name Role Phone Pcp, Does Not Have A Primary Care Physician Reyes MARINELLI Attending Clinician Art KYLE Attending Clinician Loida MARINELLI M Attending Clinician Reyes MARINELLI Admitting Clinician Payers Payer Name Policy Type Policy Effective Date Expiration Date Sour ce Number BCBS OF [id number] [facility] [place] [facility] [place] [id number] Branch 2020-Felicitas [phone] [address], [place] [address]JSL/POS Problems Condition Condition Condition Status Onset Resolution [...] [place] [facility] Unspecifie Unspecifie Disease Resolve 2019-042020-08-22 2020-08-22 Univers d d d 05-27 00:00:00 16:55:22 [place] [facility] Allergies, Adverse Reactions, Alerts This patient has no known allergies or adverse reactions. Social History Social Habit Start Date Stop Date Quantity Comments Source ASSERTION 2019-12-29 [facility] 00:00:00 [facility] Tobacco use and 2020-08-28 2020-08-28 Never used [facility] y of exposure 00:00:00 00:00:00 [facility] Alcohol intake 2020-08-28 2020-08-28 Ex-drinker [facility] 00:00:00 00:00:00 (finding) [facility] Sex Assigned At [birth year] [facility] y of 00:00:00 00:00:00 [facility] Smoking Status Start Date Stop Date Source Never smoker [facility] Medications Ordered Filled Start Stop Current Ordering Indication Dosage Frequency Signature Comments Components Source Medication Medication Date Date Medication? Clinician (SIG) Name Name PNV Yes Take by [facility] no.95/beryl 1-05 mouth. ity of [place] 19:39: [place] fum/folic 04 [facility] Branch ( ORAL) Immunizations Ordered Filled Immunization Date Status Comments Sourc e Immunization Name Name TDAP 2020-07-08 Completed [facility] 00:00:00 [facility] Vital Signs Vital Name Observation Time Observation Value Comments Source Respiratory rate 2020-08-28 13:09:00 18 /min [facility] Body weight 2020-08-28 13:09:00 98.113 kg [facility] BMI 2020-08-28 13:09:00 37.13 kg/m2 [facility] Oxygen saturation in 2020-08-28 13:09:00 98 /min [facility] Arterial blood by [facility] Pulse oximetry Branch Systolic blood 2020-08-28 13:09:00 117 mm[Hg] Univer sity of pressure [facility] Diastolic blood 2020-08-28 13:09:00 73 mm[Hg] Unive [facility] Branch Heart rate 2020-08-28 13:09:00 83 /min Universi [facility] Body temperature 2020-08-28 13:09:00 36.72 [facility] Procedures This patient has no known procedures. Plan of Care Planned Activity Planned Date Details Comments Source Future Scheduled 2030-07-08 DTaP,Tdap,and Td Univers ity [facility] Test 00:00:00 Vaccines (2 - Td) Medical Br anch [code = DTaP,Tdap,and Td Vaccines (2 - Td)] Future Scheduled 2023-01-28 Screening for [facility] Test 00:00:00 malignant neoplasm of Medica l Branch cervix (procedure) [code = 702036163] Future Scheduled 2021-08-21 Screening for [facility] Test 00:00:00 Chlamydia trachomatis Medica l Branch (procedure) [code = [id number]] Future Scheduled 2021-03-26 Depression screening [facility] Test 00:00:00 (procedure) [code = Medical Branch [id number]] Future Scheduled 2020-12-24 [facility] (Season Ended) [code = Medic al Branch INFLUENZA VACCINE (Season Ended)] Future Scheduled 2015 Hepatitis C screening [facility] Test 00:00:00 (procedure) [code = Medical Branch [id number]] Future Scheduled 2013 SARS-CoV-2 (COVID-19) [facility] Test 00:00:00 Vaccine (1) [code = Medical Branch SARS-CoV-2 (COVID-19) Vaccine (1)] Future Scheduled 2008 HPV VACCINES (1 - Univer sity [facility] Test 00:00:00 2-dose series) [code = Medic al Branch HPV VACCINES (1 - 2-dose series)] Future Scheduled 2007 MENINGOCOCCAL B [facility] Test 00:00:00 VACCINES (1 of 2 - Medical B ranch Risk Bexsero 2-dose series) [code = MENINGOCOCCAL B VACCINES (1 of 2 - Risk Bexsero 2-dose series)] Future Scheduled 1998 VARICELLA VACCINES (1 [facility] Test 00:00:00 of 2 - 2-dose Medical Branch childhood series) [code = VARICELLA VACCINES (1 of 2 - 2-dose childhood series)] Encounters Start End Encounter Admission Attending Care Care Encounter Source Date/Time Date/Time Type Type Clinicians Facility Department ID 2020-09-15 2020-09-17 [facility] Susan Chambers [facility] [id number] 11:01:00 20:10:00 Encounter Rachel [id number] [place] [id number] [place] [id number] 2020-09-16 2020-09-[id number] 20:02:51 20:02:51 Event Aron Ramos [id number] [place] [id number] [place] [id number] 2020-09-16 2020-09-16 Anesthesia Loida [facility] [id number] 04:30:00 19:25:00 Event Andres Ramos [id number] [place] [id number] [place] [id number] Results This patient has no known results.
[2020-11-13 01:50] LABS: Basophils % 0.4 % (0-1.3); Hematocrit 37.5 % (36.0-45.0); Lymphocytes % 7.7 % (15.3-44.8); MPV 7.9 fL (7.6-11.3); RBC Red Blood Cell Count 4.56 M/uL (3.86-4.86)
[2020-11-13] MEDS ORDERED: NA CHLORIDE 0.9% 1,000 ML ONE (01:54)
[2020-11-13] MEDS ORDERED: ONDANSETRON 4 MG/2 ML VIAL ONE (01:54)
[2020-11-13] MEDS ORDERED: PROMETHAZINE INJ 25 MG/ML AMP ONE ×2 (02:18→02:27)
[2020-11-13] MEDS ORDERED: MORPHINE 4 MG/ML SYR ONE (02:19)
--- NOTE | 2020-11-13 03:20 | EDPHYS ---
Physician Documentation [facility] Name: Shahriar Sharif Age: 25 yrs Sex: Female : 1995 Arrival Date: 11/13/2020 Time: 00:02 Bed 20 Private MD: ED Physician Joselito Solano HPI: 11/13 01:49 This 25 yrs old Female presents to ER via Ambulatory with complaints of rn Vomiting. 01:49 The patient presents to the emergency department with nausea, vomiting. Onset: The rn symptoms/episode began/occurred yesterday. Possible causes: unknown. The symptoms are aggravated by nothing. The symptoms are alleviated by nothing. Associated signs and symptoms: Pertinent positives: abdominal pain, nausea, vomiting, Pertinent negatives: diarrhea, fever, GI bleeding. Severity of symptoms: At their worst the symptoms were moderate in the emergency department the symptoms are unchanged. The patient has not experienced similar symptoms in the past. The patient has been recently seen by a physician:. Patient reports just had cholecystectomy with Dr. Da Silva yesterday. Was doing okay, then last night began vomiting several times, no blood, mild abdominal pain without gross changes.. Historical: - Allergies: 00:41 No Known Allergies; em - PMHx: 00:41 Cholelithiasis; em - PSHx: 00:41 Cholecystectomy; em - Immunization history:: Adult Immunizations up to date. - Social history:: Smoking status: Patient denies any tobacco usage or history of. - Family history:: not pertinent. - Hospitalizations: : No recent hospitalization is reported. ROS: 01:49 Constitutional: Negative for fever, chills, and weight loss, Eyes: Negative for injury, rn pain, redness, and discharge, Neck: Negative for injury, pain, and swelling, Cardiovascular: Negative for chest pain, palpitations, and edema, Respiratory: Negative for shortness of breath, cough, wheezing, and pleuritic chest pain, Abdomen/GI: Negative for diarrhea, and constipation Back: Negative for injury and pain, MS/Extremity: Negative for injury and deformity, Skin: Negative for injury, rash, and discoloration, Neuro: Negative for headache, weakness, numbness, tingling, and seizure. Exam: 01:49 Constitutional: This is a well developed, well nourished patient who is awake, alert, rn retching into emesis bag Head/Face: Normocephalic, atraumatic. Eyes: Pupils equal round and reactive to light, extra-ocular motions intact. Lids and lashes normal. Conjunctiva and sclera are non-icteric and not injected. Cornea within normal limits. Periorbital areas with no swelling, redness, or edema. ENT: Dry mucous membranes Cardiovascular: Tachycardic, regular. No pulse deficits Respiratory: No increased work of breathing, no retractions or nasal flaring. Abdomen/GI: Soft, mild epigastric tenderness, not out of proportion for patient who had surgery yesterday Skin: Warm, dry MS/ Extremity: Pulses equal, no cyanosis Neuro: Awake and alert, GCS 15 Vital Signs: 00:39 BP 146 / 82; Pulse 103; Resp 20; Temp 98.0; Pulse Ox 99% on R/A; Weight 63.5 kg; Height em 5 ft. 3 in. (160.02 cm); Pain 10/10; 03:51 BP 114 / 62 RA Supine (auto/reg); Pulse 114 MON; Resp 20 S; Temp 98.6(O); Pulse Ox 99% bs2 on R/A; Pain 0/10; 00:39 Body Mass Index 24.80 (63.50 kg, 160.02 cm) em MDM: 01:12 Patient medically screened. rn 03:18 Differential diagnosis: Nonspecific abd pain, gastritis, Reaction to anesthesia, rn unexplained nausea and vomiting, postoperative complication. Data reviewed: vital signs, nurses notes, lab test result(s), radiologic studies, CT scan, and as a result, I will discharge patient. Counseling: I had a detailed discussion with the patient and/or guardian regarding: the historical points, exam findings, and any diagnostic results supporting the discharge/admit diagnosis, lab results, radiology results, the need for outpatient follow up, to return to the emergency department if symptoms worsen or persist or if there are any questions or concerns that arise at home. Response to treatment: the patient's symptoms have markedly improved after treatment, and as a result, I will discharge patient. Special discussion: Based on the patient's Hx, exam, and Dx evaluation, there is no indication for emergent surgery or inpatient Tx. It is understood by the patient/guardian that if the Sx's persist or worsen they need to return immediately for re-evaluation. I discussed with the patient/guardian in detail that at this point there is no indication for admission to the hospital. It is understood, however, that if the symptoms persist or worsen the patient needs to return immediately for re-evaluation. ED course: Patient able to take a nap here, woke up "feeling great", reports feels normal now without any nausea. CT does not show any postoperative complication. Will DC home with as needed Zofran and follow-up as scheduled with Dr. Da Silva. 11/13 01:19 Order name: Basic Metabolic Panel rn 11/13 01:19 Order name: CBC with Diff rn 11/13 01:19 Order name: Hepatic Function rn 11/13 01:19 Order name: Lipase rn 11/13 01:19 Order name: CT Abd/Pelvis - IV Contrast Only rn 11/13 02:14 Order name: Manual Differential EDMS 11/13 01:19 Order name: IV Saline Lock; Complete Time: 01:33 rn 11/13 01:19 Order name: Labs collected and sent; Complete Time: :33 rn 11/13 02:25 Order name: Labs - recollect needed: green top; Complete Time: 02:59 mw2 Administered Medications: 01:33 Drug: Zofran (Ondansetron) 4 mg Route: IVP; Site: left antecubital; bs2 01:50 Follow up: Response: No adverse reaction; Nausea unchanged bs2 01:50 Drug: NS 0.9% 1000 ml Route: IV; Rate: 1000 ml; Site: left antecubital; bs2 03:54 Follow up: IV Status: Completed infusion; IV Intake: 1000ml bs2 02:00 Drug: morphine 4 mg Route: IVP; Site: left antecubital; bs2 02:26 Follow up: Response: No adverse reaction; Pain is decreased bs2 02:00 Drug: Phenergan (promethazine) 12.5 mg Route: IVP; Site: left antecubital; bs2 02:26 Follow up: Response: No adverse reaction bs2 Disposition Summary: 11/13/20 03:19 Discharge Ordered Location: Home rn Problem: new rn Symptoms: have improved rn Condition: Stable rn Diagnosis - Vomiting rn Followup: rn - With: Live Da Silva MD - When: As needed - Reason: Recheck today's complaints, Re-evaluation by your physician Discharge Instructions: - Discharge Summary Sheet rn - Nausea and Vomiting, Adult rn - Minimally Invasive Cholecystectomy, Care After rn Forms: - Medication Reconciliation Form rn - Thank You Letter rn - Antibiotic disease case manager rn - Prescription Opioid Use rn Prescriptions: - ondansetron 4 mg Oral tablet,disintegrating - place 1 tablet by TRANSLINGUAL route every 8 hours As needed; 20 tablet; rn Refills: 0, Product Selection Permitted Signatures: Dispatcher [employer] Bubba Oliver, RN RN Joselito Garcia MD MD rn [place], MyKena mw2 Veronica Medrano RN RN bs2
--- NOTE | 2020-11-13 03:20 | ER ---
Nurse's Notes [facility] Name: Shahriar Sharif Age: 25 yrs Sex: Female : 1995 Arrival Date: 11/13/2020 Time: 00:02 Bed 20 Private MD: Diagnosis: Vomiting Presentation: 11/13 00:39 Chief complaint: Patient states: had gallbladder surgery this morning, reports N/V, was em not given any medication for N/V also reports chills. Coronavirus screen: Client denies travel out of the [place] in the last 14 days. Ebola Screen: Patient negative for fever greater than or equal to 101.5 degrees Fahrenheit, and additional compatible Ebola Virus Disease symptoms Patient denies exposure to infectious person. Patient denies travel to an Ebola-affected area in the 21 days before illness onset. No symptoms or risks identified at this time. Initial Sepsis Screen: Does the patient meet any 2 criteria? HR > 90 bpm. No. Patient's initial sepsis screen is negative. Does the patient have a suspected source of infection? No. Patient's initial sepsis screen is negative. Risk Assessment: Do you want to hurt yourself or someone else? Patient reports no desire to harm self or others. Onset of symptoms was November 13, 2020. 00:39 Method Of Arrival: Ambulatory em 00:39 Acuity: NICOLE 3 em Historical: - Allergies: 00:41 No Known Allergies; em - PMHx: 00:41 Cholelithiasis; em - PSHx: 00:41 Cholecystectomy; em - Immunization history:: Adult Immunizations up to date. - Social history:: Smoking status: Patient denies any tobacco usage or history of. - Family history:: not pertinent. - Hospitalizations: : No recent hospitalization is reported. Screenin:30 Abuse screen: Denies threats or abuse. Denies injuries from another. Nutritional bs2 screening: No deficits noted. Tuberculosis screening: No symptoms or risk factors identified. Fall Risk None identified. Assessment: 01:30 General: Appears uncomfortable, obese, well groomed, well developed, well nourished, bs2 Behavior is cooperative, appropriate for age. Pain: Complains of pain in abdomen Pain currently is 8 out of 10 on a pain scale. Neuro: No deficits noted. Cardiovascular: No deficits noted. Respiratory: No deficits noted. GI: Abdomen is round non-distended, obese, Bowel sounds present X 4 quads. Abd is soft X 4 quads Abdomen is tender to palpation X 4 quads. Reports lower abdominal pain, upper abdominal pain, nausea, vomiting. : No deficits noted. EENT: No deficits noted. Derm: No deficits noted. Vital Signs: 00:39 BP 146 / 82; Pulse 103; Resp 20; Temp 98.0; Pulse Ox 99% on R/A; Weight 63.5 kg; Height em 5 ft. 3 in. (160.02 cm); Pain 10/10; 03:51 BP 114 / 62 RA Supine (auto/reg); Pulse 114 MON; Resp 20 S; Temp 98.6(O); Pulse Ox 99% bs2 on R/A; Pain 0/10; 00:39 Body Mass Index 24.80 (63.50 kg, 160.02 cm) em ED Course: 00:02 Patient arrived in ED. es 00:41 Triage completed. em 00:41 Arm band placed on. em 01:12 Joselito Solano MD is Attending Physician. rn 01:30 Patient has correct armband on for positive identification. Bed in low position. Call bs2 light in reach. Side rails up X2. Adult w/ patient. Pulse ox on. NIBP on. Door closed. Noise minimized. Lights dimmed. Warm blanket given. 01:33 Veronica Medrano, RN is Primary Nurse. bs2 01:33 Basic Metabolic Panel Sent. bs2 01:33 CBC with Diff Sent. bs2 01:33 Hepatic Function Sent. bs2 01:33 Lipase Sent. bs2 01:35 Inserted saline lock: 20 gauge in left antecubital area, using aseptic technique. bs2 01:54 CT Abd/Pelvis - IV Contrast Only In Process Unspecified. EDMS 02:09 Lipase Sent. bs2 02:09 Hepatic Function Sent. bs2 02:09 CBC with Diff Sent. bs2 02:09 Basic Metabolic Panel Sent. bs2 02:59 Manual Differential Sent. bs2 03:19 Live Da Silva MD is Referral Physician. rn 03:53 No provider procedures requiring assistance completed. IV discontinued, intact, bs2 bleeding controlled, No redness/swelling at site. Administered Medications: 01:33 Drug: Zofran (Ondansetron) 4 mg Route: IVP; Site: left antecubital; bs2 01:50 Follow up: Response: No adverse reaction; Nausea unchanged bs2 01:50 Drug: NS 0.9% 1000 ml Route: IV; Rate: 1000 ml; Site: left antecubital; bs2 03:54 Follow up: IV Status: Completed infusion; IV Intake: 1000ml bs2 02:00 Drug: morphine 4 mg Route: IVP; Site: left antecubital; bs2 02:26 Follow up: Response: No adverse reaction; Pain is decreased bs2 02:00 Drug: Phenergan (promethazine) 12.5 mg Route: IVP; Site: left antecubital; bs2 02:26 Follow up: Response: No adverse reaction bs2 Intake: 03:54 IV: 1000ml; Total: 1000ml. bs2 Outcome: 03:19 Discharge ordered by . rn 03:53 Discharged to home ambulatory, with significant other. bs2 03:53 Condition: improved 03:53 Discharge instructions given to patient, significant other, Instructed on discharge instructions, follow up and referral plans. medication usage, Demonstrated understanding of instructions, follow-up care, medications, Prescriptions given X 1. 03:54 Patient left the ED. bs2 Signatures: Dispatcher [employer] Andreea Tran Edgar, RN RN Joselito Garcia MD MD rn Smith, Bridget, RN RN bs2
[2020-11-13 03:33] LABS: ALT/SGPT 42 U/L (12-78); AST/SGOT 27 U/L (15-37); Albumin 3.4 g/dL (3.4-5.0); Alkaline Phosphatase 118 U/L (45-117); BUN Blood Urea Nitrogen 10 mg/dL (7-18); Bicarbonate 23 mmol/L (21-32); Bilirubin Direct < 0.1 mg/dL (0-0.2); Bilirubin Total 0.3 mg/dL (0.2-1.0); Glucose Level 111 mg/dL (74-106); Lipase 126 U/L (73-393); Potassium 3.8 mmol/L (3.5-5.1); Sodium Level 134 mmol/L (136-145)
[2020-11-13 04:15] VITALS: O2SAT 99
[2020-11-13 04:17] VITALS: BP 114/62; TEMP 98.6
[2020-11-13 04:28] LABS: Blood Morphology Comment NOT SEEN (NOT SEEN); Platelet Estimate ADEQ
--- NOTE | 2020-11-13 12:32 | RAD REPORT ---
EXAM DESCRIPTION: CT - Abdomen Pelvis W Contrast - 11/13/2020 6:44 am COMPARISON: CT abdomen and pelvis October 05, 2020 CLINICAL HISTORY: Post cholecystectomy yesterday, abd pain and vomiting TECHNIQUE: CT of the abdomen and pelvis was acquired with IV contrast material. Coronal and sagitt al reconstructions were obtained. Automated exposure control was utilized on this examination as a dose lowering technique. FINDINGS: Lung bases: Clear. Liver: A 1.8 cm right hepatic enhancing lesion is noted. Gallbladder and biliary: Cholecystectomy with trace fluid in the gallbladder fossa. Unremarkable bili stephanie tree. Pancreas: Normal. Spleen: Normal. Adrenal glands: Normal adrenal glands. Kidneys: Normal kidneys Stomach and Small Bowel: The stomach and small bowel are normal. Urinary bladder: Normal. Uterus and Adnexa: Normal. Colon and Appendix: The colon is unremarkable. No evidence of appendicitis. Retroperitoneum and lymph nodes: Normal. Vascular: Normal. Peritoneal cavity: Several small foci of gas are noted in the right upper quadrant. Musculoskeletal and soft tissues: There are surgical changes of the ventral abdomen with mild ventral skin thickening and a few subcutaneous foci of gas. No aggressive bone lesions. No compression fra cture. IMPRESSION: 1. Cholecystectomy. Foci of gas in the right upper quadrant and trace fluid in the gallb ladder fossa are likely postsurgical. 2. Ventral skin thickening with foci of gas. This is likely postsurgical or may represent cellulitis. 3. A 1.8 cm right hepatic enhancing lesion likely represents a benign lesion such as hemangioma, lindsey johanne, or focal nodular hyperplasia given patient age. Further evaluation may be performed with CT or M RI with multiphasic liver protocol if clinically indicated. Electronically signed by: Jas Naqvi MD 11/13/2020 2:24 AM CDT Due to temporary technical issues with the PACS/Fluency reporting system, reports are being signed by the in house radiologists without review as a courtesy to insure prompt reporting. The interpreting radiologist is fully responsible for the content of the report.
== END 2020-11-13 03:54 | disposition home or self-care (01) ==
LOC: ER 23:58
DX: R11.10 Vomiting, unspecified (principal); Z90.49 Acquired absence of other specified parts of digestive tract
CPT/HCPCS: 96361; 85025; 80048; 36415; 80076; 83690; 74177; 96375; 96374; 99284; Q9967; J2550 ×2; J7030; J2405